=== PATIENT | female | born 1980 | race Caucasian/White ===

== ENCOUNTER 2022-02-28 08:38 | Emergency (ER) | payer MEDICAID ==
[~2022-02-28] VITALS: Ht 157.5 cm; Wt 79.5 kg
--- NOTE | 2022-02-28 09:27 | NUR ---
UNABLE TO GIVE URINE SAMPLE AT THIS TIEM
--- NOTE | 2022-02-28 09:51 | NUR ---
URINE SENT TO LAB
[2022-02-28 09:57] LABS: CLARITY,URINE CLOUDY (Clear); COLOR,URINE YELLOW (Yellow); GLUCOSE, URINE NEGATIVE (Neg); KETONES,URINE 15 mg/dl (Neg); LEUKOCYTE ESTERASE ,URINE LARGE (Neg); NITRITES, URINE POSITIVE (Neg); OCCULT BLOOD,URINE MODERATE (Neg); PROTEIN,URINE 30 mg/dl (Neg); UROBILINOGEN,URINE 0.2 E.U/dL (0.2-1.0)
[2022-02-28 09:58] LABS: UA COLLECTION TYPE CLN CATCH MIDSTREAM
[2022-02-28 10:00] LABS: URINE HCG NEGATIVE (NEG)
[2022-02-28] MEDS ORDERED: normal saline 1000ML IV soln IVB ONE (10:00)
[2022-02-28] MEDS ORDERED: ondansetron/PF 4mg/2ml inj IV ONE (10:00)
[2022-02-28 10:05] LABS: SQUAMOUS EPITHELIAL CELL,UR MANY /LPF (FEW); WBC,URINE TNTC /HPF (0-4)
[2022-02-28 10:06] LABS: BACTERIA,URINE 1+ /HPF (Neg); RBC,URINE 0-2 /HPF (0-2)
--- NOTE | 2022-02-28 10:14 | NUR ---
Isolation cart placed outside of patients room due to r/o for COVID/flu. Patient also educated regarding need to obtain another urine sampel due to sample being rejected for culture. Patient given a urine collection cup and multiple wipes, educated regarding mid stream clean catch. patient verbalized understanding, but unable to void at this time. [place] PAUL aware of need for another urine sample.
--- NOTE | 2022-02-28 10:42 | NUR ---
relieving RN for break, pt is resting quietly on bed, family at bedside, flu and covid swab done, technical laboratory asst at bedside, 1st liter NS infusing w/o
[2022-02-28 10:55] LABS: BASOPHILS % (AUTO) 0.1 % (0-1); EOSINOPHILS % (AUTO) 0 % (0-6); HEMATOCRIT 36.9 % (35.0-45.0); HEMOGLOBIN 12.2 g/dl (12.0-16.0); LYMPHOCYTES # (AUTO) 0.6 X10'3 (1.1-4.8); LYMPHOCYTES % (AUTO) 4.7 % (21-51); MEAN CORPUSCULAR HEMOGLOBIN 28.5 PG (27.0-31.0); MEAN CORPUSCULAR HGB CONC 33.1 g/dL (33.0-36.5); MEAN CORPUSCULAR VOLUME 86.3 FL (78-98); MONOCYTES # (AUTO) 1.4 X10'3 (0-0.9); MONOCYTES % (AUTO) 10.5 % (2-12); NEUTROPHILS # (AUTO) 11.6 X10'3 (1.8-7.7); NEUTROPHILS % (AUTO) 84.7 % (42-75); PLATELET COUNT 184 X10'3 (140-440); RED BLOOD COUNT 4.28 X10'6 (4.20-5.60); RED CELL DISTRIBUTION WIDTH 13.9 % (11.5-14.5); WHITE BLOOD COUNT 13.7 X10'3 (4.5-11.0)
[2022-02-28 11:05] LABS: ALANINE AMINOTRANSFERASE 15 U/L (12-78); ALBUMIN 2.6 G/DL (3.4-5.0); ALBUMIN/GLOBULIN RATIO 0.7 (1.1-1.5); ALKALINE PHOSPHATASE 48 IU/L (46-116); ANION GAP 6 (8-16); ASPARTATE AMINO TRANSFERASE 15 U/L (10-37); BILIRUBIN,TOTAL 0.4 MG/DL (0.1-1.0); BLOOD UREA NITROGEN 9 MG/DL (7-18); BUN/CREATININE RATIO 10.1 (6.6-38.0); CHLORIDE 100 MMOL/L (99-107); CREATININE 0.89 MG/DL (0.40-0.90); GLUCOSE 111 MG/DL (70-104); POTASSIUM 3.7 MMOL/L (3.5-5.1); SODIUM 134 MMOL/L (135-145); TOTAL CARBON DIOXIDE 27.9 MMOL/L (24-32); TOTAL PROTEIN 6.3 G/DL (6.4-8.2); eGFR 70 ML/MIN
[2022-02-28] MEDS ORDERED: CefTRIAXone/D5W-Rocephin 1gm 50 ML IV ONE (11:05)
[2022-02-28] MEDS ORDERED: ONDA4TAB12 PO (11:11)
[2022-02-28] MEDS ORDERED: CIPR-259 PO (11:11)
[2022-02-28 11:41] VITALS: BP 113/66
== END 2022-02-28 12:11 | disposition home or self-care (01) ==
LOC: ER 08:38
DX: N10 Acute pyelonephritis (principal); Z20.822 Contact with and (suspected) exposure to COVID-19; Z91.041 Radiographic dye allergy status; Z88.5 Allergy status to narcotic agent; Z91.040 Latex allergy status; Z87.891 Personal history of nicotine dependence
CPT/HCPCS: 36415; 80053; 81001; 81025; 85025; 87502; 87503; 87811; 96361; 96365; 96375; 99284; J0696; J2405; J7030

== ENCOUNTER 2022-03-07 08:29 | Emergency (ER) | payer MEDICAID ==
[~2022-03-07] VITALS: Ht 157.5 cm; Wt 79.5 kg
[~2022-03-07 08:29] MED LIST: CIPR-259 PO; ONDA4TAB12 PO
[2022-03-07 08:38] VITALS: BP 147/86
--- NOTE | 2022-03-07 11:08 | NUR ---
Lon bautista in ED - 03/07/22 at 1210 by GULSHAN PT [id number] SITTING AT [address].
[2022-03-07] MEDS ORDERED: ACYC-129 PO (12:09)
[2022-03-07] MEDS ORDERED: PRED10TA23 PO (12:09)
[2022-03-07] MEDS ORDERED: ACYC5CRE2 TOP (12:09)
--- NOTE | 2022-03-07 12:11 | NUR ---
PT CAME IN WITH A CO OF VAGINAL DISCOMFORT. JERICHO NUNEZ PERFORMED A PELVIC EXAM WITH ME A WITNESS. MAYRA EXPLAINED THE PROCEDURE TO THE PT PRIOR TO THE EXAM, AND COMMUNICATED THROUGHOUT WHAT HE WAS DOING. DURING THE EXAM NOTHING ABNORMAL WAS FOUND. THE PT DOES NOT APPEAR TO BE IN ANY DISTRESS DURING THE PROCESS. EDUCATION WAS PROVIDED BY JERICHO REGARDING ANTIVIRAL MEDICATION USE FOR PREVIOUS DIAGNOSIS. PT VERBALIZED HER UNDERSTANING.
== END 2022-03-07 12:32 | disposition home or self-care (01) ==
LOC: ER 08:30
DX: B00.9 Herpesviral infection, unspecified (principal); Z88.5 Allergy status to narcotic agent; Z91.041 Radiographic dye allergy status; Z91.040 Latex allergy status; Z87.891 Personal history of nicotine dependence
CPT/HCPCS: 99283

== ENCOUNTER 2023-01-17 14:35 | Emergency (ER) | payer MEDICAID ==
[~2023-01-17] VITALS: Ht 157.5 cm; Wt 95.0 kg
[~2023-01-17 14:35] MED LIST changes: +ACYC5CRE2 TOP; -CIPR-259 PO
[2023-01-17 14:42] VITALS: BP 130/83
[2023-01-17 16:12] LABS: URINE HCG NEGATIVE (NEG)
[2023-01-17 16:16] LABS: CLARITY,URINE CLEAR (Clear); COLOR,URINE STRAW (Yellow); GLUCOSE, URINE NEGATIVE (Neg); KETONES,URINE NEGATIVE (Neg); LEUKOCYTE ESTERASE ,URINE NEGATIVE (Neg); NITRITES, URINE NEGATIVE (Neg); OCCULT BLOOD,URINE NEGATIVE (Neg); PROTEIN,URINE NEGATIVE (Neg); UROBILINOGEN,URINE 0.2 E.U/dL (0.2-1.0)
[2023-01-17 16:26] LABS: UA COLLECTION TYPE CLN CATCH MIDSTREAM
[2023-01-17] MEDS ORDERED: PRED20TA PO (16:47)
[2023-01-17] MEDS ORDERED: ACYC-129 PO (16:47)
== END 2023-01-17 17:00 | disposition home or self-care (01) ==
LOC: ER 14:36
DX: B00.9 Herpesviral infection, unspecified (principal); Z76.0 Encounter for issue of repeat prescription; Z88.8 Allergy status to other drugs, medicaments and biological substances; Z88.5 Allergy status to narcotic agent; Z79.899 Other long term (current) drug therapy
CPT/HCPCS: 81003; 81025; 99283

== ENCOUNTER 2023-02-03 13:29 | Emergency (ER) | payer MEDICAID ==
[~2023-02-03] VITALS: Ht 157.5 cm; Wt 99.6 kg
[~2023-02-03 13:29] MED LIST changes: +ACYC-129 PO
[2023-02-03 13:38] VITALS: BP 127/82; PULSE 65; RESP 18; TEMP 99.2; O2SAT 96
[2023-02-03] MEDS ORDERED: TRAM50TA2 PO (14:43)
[2023-02-03] MEDS ORDERED: IBUP-1986 PO (14:43)
== END 2023-02-03 16:00 | disposition home or self-care (01) ==
LOC: ER 13:30
DX: M25.532 Pain in left wrist (principal); Z91.041 Radiographic dye allergy status; Z88.5 Allergy status to narcotic agent; Z91.040 Latex allergy status; Z91.013 Allergy to seafood; Z79.2 Long term (current) use of antibiotics
CPT/HCPCS: 29125; 73110; 99283

== ENCOUNTER → 2023-06-24 | Emergency (ER) | payer MEDICAID ==
[~2023-06-24] VITALS: Ht 157.5 cm; Wt 104.5 kg
[~2023-06-24] MED LIST changes: +IBUP-1986 PO; +NAPR-56 PO; +ketorolac trometh inj. 60 MG/2 ML VIAL IM ONE
[2023-06-24 11:45] LABS: URINE HCG NEGATIVE (NEG)
[2023-06-24 11:47] LABS: BASOPHILS # (AUTO) 0.2 X10'3 (0-0.2); BASOPHILS % (AUTO) 1.6 % (0-1); EOSINOPHILS # (AUTO) 0.3 X10'3 (0-0.9); EOSINOPHILS % (AUTO) 2.6 % (0-6); HEMATOCRIT 38.3 % (35.0-45.0); HEMOGLOBIN 12.8 g/dl (12.0-16.0); LYMPHOCYTES % (AUTO) 9.2 % (21-51); MEAN CORPUSCULAR HEMOGLOBIN 29.6 PG (27.0-31.0); MEAN CORPUSCULAR HGB CONC 33.3 g/dL (33.0-36.5); MEAN CORPUSCULAR VOLUME 88.7 FL (78-98); MEAN PLATELET VOLUME 6.5 FL (7.4-10.4); MONOCYTES % (AUTO) 8.8 % (2-12); NEUTROPHILS # (AUTO) 8.8 X10'3 (1.8-7.7); NEUTROPHILS % (AUTO) 77.8 % (42-75); PLATELET COUNT 290 X10'3 (140-440); RED BLOOD COUNT 4.32 X10'6 (4.20-5.60); RED CELL DISTRIBUTION WIDTH 13.8 % (11.5-14.5); WHITE BLOOD COUNT 11.3 X10'3 (4.5-11.0)
[2023-06-24 11:47] LABS: BILIRUBIN,URINE NEGATIVE (Neg); CLARITY,URINE CLEAR (Clear); COLOR,URINE YELLOW (Yellow); GLUCOSE, URINE NEGATIVE (Neg); KETONES,URINE NEGATIVE (Neg); LEUKOCYTE ESTERASE ,URINE NEGATIVE (Neg); NITRITES, URINE NEGATIVE (Neg); OCCULT BLOOD,URINE NEGATIVE (Neg); PH,URINE 6.5 (4.8-8.0); PROTEIN,URINE NEGATIVE (Neg); UROBILINOGEN,URINE 0.2 E.U/dL (0.2-1.0)
[2023-06-24 11:51] LABS: UA COLLECTION TYPE CLN CATCH MIDSTREAM
[2023-06-24 12:04] LABS: ALANINE AMINOTRANSFERASE 43 U/L (12-78); ALBUMIN 3.5 G/DL (3.4-5.0); ALKALINE PHOSPHATASE 52 IU/L (46-116); ANION GAP 9 (8-16); ASPARTATE AMINO TRANSFERASE 20 U/L (10-37); BILIRUBIN,TOTAL 0.2 MG/DL (0.1-1.0); BLOOD UREA NITROGEN 10 MG/DL (7-18); BUN/CREATININE RATIO 14.5 (10.0-20.0); CALCIUM 8.7 MG/DL (8.5-10.1); CHLORIDE 103 MMOL/L (99-107); CREATININE 0.69 MG/DL (0.40-0.90); GLUCOSE 92 MG/DL (70-104); LIPASE 22 U/L (16-77); POTASSIUM 3.8 MMOL/L (3.5-5.1); SODIUM 139 MMOL/L (135-145); TOTAL PROTEIN 7.1 G/DL (6.4-8.2); eCRCL 84 ML/MIN; eGFR > 90 ML/MIN
[2023-06-24 14:07] VITALS: BP 132/77; PULSE 64; RESP 17; TEMP 98.3; O2SAT 100
== END | disposition home or self-care (01) ==
LOC: ER 11:04
DX: R10.9 Unspecified abdominal pain (principal); Z88.5 Allergy status to narcotic agent; Z91.040 Latex allergy status; Z91.010 Allergy to peanuts; Z91.013 Allergy to seafood
CPT/HCPCS: 36415; 80053; 81003; 81025; 83690; 85025; 96372; 99283; J1885; J7030

== ENCOUNTER 2024-03-31 10:14 | Inpatient (IN) | payer MEDICAID ==
[~2024-03-31] VITALS: Ht 157.5 cm; Wt 90.9 kg
[~2024-03-31 10:14] MED LIST changes: -NAPR-56 PO; +ONDA-243 PO; -ONDA4TAB12 PO; -ketorolac trometh inj. 60 MG/2 ML VIAL IM ONE
[2024-03-31] MEDS: fentaNYL/PF 50MCG/1 ML 2ML syringe IV ONE ×2 (10:57→12:36)
[2024-03-31] MEDS: normal saline 1000ML IV soln IVB ONE (10:58)
[2024-03-31 11:24] LABS: BASOPHILS % (AUTO) 0.4 % (0-1); EOSINOPHILS # (AUTO) 0.2 X10'3 (0-0.9); EOSINOPHILS % (AUTO) 3.2 % (0-6); HEMATOCRIT 41.3 % (35.0-45.0); HEMOGLOBIN 13.6 g/dl (12.0-16.0); LYMPHOCYTES # (AUTO) 1.2 X10'3 (1.1-4.8); MEAN CORPUSCULAR HEMOGLOBIN 29.5 PG (27.0-31.0); MEAN CORPUSCULAR HGB CONC 32.9 g/dL (33.0-36.5); MEAN CORPUSCULAR VOLUME 89.7 FL (78-98); MONOCYTES # (AUTO) 0.6 X10'3 (0-0.9); MONOCYTES % (AUTO) 8.1 % (2-12); NEUTROPHILS # (AUTO) 5.3 X10'3 (1.8-7.7); NEUTROPHILS % (AUTO) 72.3 % (42-75); PLATELET COUNT 264 X10'3 (140-440); RED CELL DISTRIBUTION WIDTH 13.5 % (11.5-14.5); WHITE BLOOD COUNT 7.3 X10'3 (4.5-11.0)
[2024-03-31 11:44] LABS: ALBUMIN 3.6 G/DL (3.4-5.0); ANION GAP 9 (8-16); BLOOD UREA NITROGEN 12 MG/DL (7-18); BUN/CREATININE RATIO 14.8 (10.0-20.0); CALCIUM 8.9 MG/DL (8.5-10.1); CHLORIDE 103 MMOL/L (99-107); CREATININE 0.81 MG/DL (0.40-0.90); GLUCOSE 63 MG/DL (70-104); MAGNESIUM 1.8 MG/DL (1.5-2.4); POTASSIUM 4.3 MMOL/L (3.5-5.1); PRO BRAIN NATRIURETIC PEPTIDE 233 PG/ML (0-125); SODIUM 140 MMOL/L (135-145); TOTAL CARBON DIOXIDE 28.3 MMOL/L (24-32); eCRCL 71 ML/MIN; eGFR 77 ML/MIN
[2024-03-31] MEDS ORDERED: BUPR-344 PO (12:23)
[2024-03-31] MEDS ORDERED: FLUO-167 PO (12:25)
[2024-03-31] MEDS ORDERED: SEMA2PEN SUBCUT (12:26)
[2024-03-31] MEDS ORDERED: ARIP30TA22 PO (12:27)
[2024-03-31] MEDS ORDERED: potassium Cl 40MEQ/1/2NS 520ml 520 ML IV PRN (12:30)
[2024-03-31] MEDS ORDERED: magnesium sulf-water 4G/100mL 100 ML IV PRN (12:30)
[2024-03-31] MEDS ORDERED: magnesium sulf-water 2g/50mL 50 ML IV PRN (12:30)
[2024-03-31] MEDS ORDERED: magnesium hydroxide 30ml (MOM) UD suspension PO PRN (12:30)
[2024-03-31] MEDS ORDERED: HYDROmorphone/PF 0.2 MG/ML SYRINGE IV PRN (12:30)
[2024-03-31] MEDS ORDERED: potassium Cl 20 mEq SR tablet PO PRN ×2 (12:30)
[2024-03-31] MEDS ORDERED: acetaminophen 325mg tablet PO PRN ×2 (12:30)
[2024-03-31] MEDS ORDERED: HYDROcodone/acetaminophen 5mg/325mg tablet PO PRN (12:30)
[2024-03-31] MEDS ORDERED: mag hydrox/Alum hydrox/simeth 30ml oral suspension PO PRN (12:30)
[2024-03-31] MEDS: HYDROmorphone 1 mg/ml syringe IV ONE (12:33)
[2024-03-31] MEDS: normal saline 1000ml 1,000 ML IV SCH (12:38)
[2024-03-31] MEDS: HYDROcodone/acetaminophen 10/325mg tab PO PRN (14:11)
[2024-03-31] MEDS: ondansetron/PF 4mg/2ml inj IV PRN (15:57)
[2024-03-31] MEDS: HYDROmorphone inj. 0.5 MG/0.5 ML DISP.SYRIN IV PRN (16:00)
[2024-03-31] MEDS: K and/or MAG REPLACEMENT MC SCH (20:00)
[2024-03-31] MEDS: docusate sod 100mg capsule PO SCH (20:00)
[2024-03-31] MEDS: enoxaparin 40mg/0.4ml syringe SQ SCH (20:52)
[2024-04-01] VITALS (18 sets, daily range): BP systolic 104–136; BP diastolic 57–76; PULSE 66–86; RESP 12–17; TEMP 97.7–98.8; O2SAT 87–100
[2024-04-01 02:11] LABS: BASOPHILS % (AUTO) 0.2 % (0-1); EOSINOPHILS # (AUTO) 0.1 X10'3 (0-0.9); EOSINOPHILS % (AUTO) 1.1 % (0-6); HEMATOCRIT 35.1 % (35.0-45.0); HEMOGLOBIN 11.8 g/dl (12.0-16.0); LYMPHOCYTES # (AUTO) 0.9 X10'3 (1.1-4.8); LYMPHOCYTES % (AUTO) 12.1 % (21-51); MEAN CORPUSCULAR HEMOGLOBIN 30.2 PG (27.0-31.0); MEAN CORPUSCULAR HGB CONC 33.7 g/dL (33.0-36.5); MEAN CORPUSCULAR VOLUME 89.5 FL (78-98); MEAN PLATELET VOLUME 6.9 FL (7.4-10.4); MONOCYTES # (AUTO) 0.7 X10'3 (0-0.9); MONOCYTES % (AUTO) 9.5 % (2-12); NEUTROPHILS # (AUTO) 5.7 X10'3 (1.8-7.7); NEUTROPHILS % (AUTO) 77.1 % (42-75); PLATELET COUNT 236 X10'3 (140-440); RED BLOOD COUNT 3.92 X10'6 (4.20-5.60); RED CELL DISTRIBUTION WIDTH 13.1 % (11.5-14.5); WHITE BLOOD COUNT 7.4 X10'3 (4.5-11.0)
[2024-04-01 02:22] LABS: ALBUMIN 2.8 G/DL (3.4-5.0); ANION GAP 8 (8-16); ASPARTATE AMINO TRANSFERASE 152 U/L (10-37); BILIRUBIN,TOTAL 0.5 MG/DL (0.1-1.0); BLOOD UREA NITROGEN 9 MG/DL (7-18); CALCIUM 7.8 MG/DL (8.5-10.1); CHLORIDE 106 MMOL/L (99-107); CREATININE 0.69 MG/DL (0.40-0.90); GLUCOSE 100 MG/DL (70-104); MAGNESIUM 1.5 MG/DL (1.5-2.4); POTASSIUM 3.9 MMOL/L (3.5-5.1); SODIUM 141 MMOL/L (135-145); TOTAL CARBON DIOXIDE 27.2 MMOL/L (24-32); TOTAL PROTEIN 5.6 G/DL (6.4-8.2); eCRCL 83 ML/MIN; eGFR > 90 ML/MIN
[2024-04-01 02:23] LABS: ALANINE AMINOTRANSFERASE 210 U/L (12-78); ALKALINE PHOSPHATASE 72 IU/L (46-116)
[2024-04-01] MEDS ORDERED: hydrALAZINE 20mg/ml inj. IV PRN (08:25)
[2024-04-01] MEDS: ringers solution, lacted 1,000 ML IV SCH (08:25)
[2024-04-01] MEDS ORDERED: fentaNYL/PF 50MCG/1 ML 2ML syringe IV PRN ×2 (08:25)
[2024-04-01] MEDS ORDERED: labetalol 20mg/4ml (5mg/ml) syringe IV PRN (08:25)
[2024-04-01] MEDS ORDERED: ondansetron/PF 4mg/2ml inj IV PRN (08:25)
[2024-04-01] MEDS ORDERED: HYDROmorphone/PF 0.2 MG/ML SYRINGE IV PRN ×2 (08:25)
[2024-04-01] MEDS ORDERED: HYDROmorphone inj. 0.5 MG/0.5 ML DISP.SYRIN IV PRN (08:45)
[2024-04-01] MEDS: FLUoxetine 20mg capsule PO SCH (09:28)
[2024-04-01] MEDS: aripiprazole 15 MG tablet PO SCH (09:30)
[2024-04-01] MEDS: BUPROPION HCL 150MG XL 24 HR 150 MG TAB PO SCH (09:32)
[2024-04-01] MEDS: famotidine 20mg tablet PO ONE (11:12)
[2024-04-01] MEDS: cefazolin 2gm/D5W 100mL 100 ML IV ONE (11:20)
[2024-04-01] MEDS ORDERED: LIDOcaine 2% (20mg/ml) 5ml vial ONE (11:50)
[2024-04-01] MEDS ORDERED: propofol inj 20 ML IV ONE (11:50)
[2024-04-01] MEDS ORDERED: ROPIVAcaine 0.5% (5mg/ml) 30ml vial ONE ×2 (11:50)
[2024-04-01] MEDS ORDERED: ondansetron/PF 4mg/2ml inj ONE (11:50)
[2024-04-01] MEDS ORDERED: sevoflurane 250ml liquid IH ONE (12:01)
[2024-04-01] MEDS ORDERED: acetaminophen 1,000mg/100ml IV 100 ML IV ONE (12:36)
[2024-04-01] MEDS ORDERED: dexamethasone sod phosphate 4mg/ml inj. ONE (12:42)
[2024-04-01] MEDS: BUPIVAcaine 2.5mg/ml inj 50ml vial (contains preservative) ONE (15:18)
[2024-04-02 02:00] VITALS: BP 97/54; PULSE 70; RESP 16; TEMP 97.8; O2SAT 94
[2024-04-02 06:00] VITALS: BP 120/72; PULSE 88; RESP 16; TEMP 97.7; O2SAT 99
[2024-04-02 06:11] LABS: BASOPHILS % (AUTO) 0.1 % (0-1); EOSINOPHILS % (AUTO) 0.1 % (0-6); HEMATOCRIT 34.8 % (35.0-45.0); HEMOGLOBIN 11.6 g/dl (12.0-16.0); LYMPHOCYTES # (AUTO) 1.1 X10'3 (1.1-4.8); LYMPHOCYTES % (AUTO) 11.1 % (21-51); MEAN CORPUSCULAR HGB CONC 33.3 g/dL (33.0-36.5); MEAN PLATELET VOLUME 7.3 FL (7.4-10.4); MONOCYTES # (AUTO) 1.2 X10'3 (0-0.9); MONOCYTES % (AUTO) 12.5 % (2-12); NEUTROPHILS # (AUTO) 7.5 X10'3 (1.8-7.7); NEUTROPHILS % (AUTO) 76.2 % (42-75); PLATELET COUNT 214 X10'3 (140-440); RED BLOOD COUNT 3.87 X10'6 (4.20-5.60); RED CELL DISTRIBUTION WIDTH 13.3 % (11.5-14.5); WHITE BLOOD COUNT 9.9 X10'3 (4.5-11.0)
[2024-04-02 06:37] LABS: ALANINE AMINOTRANSFERASE 132 U/L (12-78); ALBUMIN 2.7 G/DL (3.4-5.0); ALBUMIN/GLOBULIN RATIO 0.9 (1.1-1.5); ALKALINE PHOSPHATASE 62 IU/L (46-116); ANION GAP 6 (8-16); ASPARTATE AMINO TRANSFERASE 59 U/L (10-37); BILIRUBIN,TOTAL 0.3 MG/DL (0.1-1.0); BLOOD UREA NITROGEN 6 MG/DL (7-18); CALCIUM 8.4 MG/DL (8.5-10.1); CHLORIDE 107 MMOL/L (99-107); GLUCOSE 90 MG/DL (70-104); MAGNESIUM 1.8 MG/DL (1.5-2.4); POTASSIUM 3.9 MMOL/L (3.5-5.1); SODIUM 141 MMOL/L (135-145); TOTAL CARBON DIOXIDE 27.6 MMOL/L (24-32); TOTAL PROTEIN 5.7 G/DL (6.4-8.2); eCRCL 96 ML/MIN; eGFR > 90 ML/MIN
[2024-04-02 08:00] VITALS: RESP 16; O2SAT 99
[2024-04-02] MEDS ORDERED: HYDR-3972 PO (11:27)
[2024-04-02 12:00] VITALS: BP 93/52; PULSE 83; RESP 18; TEMP 98.2; O2SAT 98
== END 2024-04-02 13:06 | disposition home or self-care (01) | DRG 315 ==
LOC: ER 10:14 → ED HOLD 12:36 → ORTHO 4S 04-01 07:35
PROVIDERS: ADMIT Family Medicine; ATTEND Family Medicine
PROC: 2W3CX1Z Immobilization of Right Lower Arm using Splint (ICD-10-PCS; principal; 2024-03-31)
PROC: 0PSF04Z Reposition Right Humeral Shaft with Internal Fixation Device, Open Approach (ICD-10-PCS; 2024-04-01)
PROC: 3E0T3BZ Introduction of Anesthetic Agent into Peripheral Nerves and Plexi, Percutaneous Approach (ICD-10-PCS; 2024-04-01)
PROC: 3E0T33Z Introduction of Anti-inflammatory into Peripheral Nerves and Plexi, Percutaneous Approach (ICD-10-PCS; 2024-04-01)
DX: S42.461A Displaced fracture of medial condyle of right humerus, initial encounter for closed fracture (principal); E16.2 Hypoglycemia, unspecified; W18.39XA Other fall on same level, initial encounter; E66.9 Obesity, unspecified; Z66 Do not resuscitate; F32.A Depression, unspecified; Z88.5 Allergy status to narcotic agent; Z79.899 Other long term (current) drug therapy; Z91.013 Allergy to seafood; Z91.040 Latex allergy status; Z91.018 Allergy to other foods; Y93.89 Activity, other specified; Y92.89 Other specified places as the place of occurrence of the external cause; Y99.8 Other external cause status; Z83.3 Family history of diabetes mellitus; Z98.84 Bariatric surgery status; Z68.36 Body mass index [BMI] 36.0-36.9, adult
CPT/HCPCS: 36415; 71045; 73070; 73080; 76000; 80048; 80053; 82948; 83735; 83880; 84484; 85025; 87081; 93005; 93306; 96374; 96376; 97116; 97161; 99285; A4215; A4565; A4618; A6222; A6446; A6449; A7000; C1713; G0378; J0131; J0690; J1100; J1170; J1650; J2405; J2704; J2795; J3010; J3490; J7030; J7120

== ENCOUNTER 2024-05-13 09:32 | Emergency (ER) | payer MEDICAID ==
[~2024-05-13] VITALS: Ht 157.5 cm; Wt 94.0 kg
[~2024-05-13 09:32] MED LIST changes: -ACYC-129 PO; -ACYC5CRE2 TOP; +ARIP30TA22 PO; +BUPR-344 PO; +FLUO-167 PO; +HYDR-3972 PO; -IBUP-1986 PO; -ONDA-243 PO
[2024-05-13 11:30] VITALS: TEMP 98.2
[2024-05-13 11:36] LABS: BASOPHILS % (AUTO) 0.4 % (0-1); EOSINOPHILS # (AUTO) 0.2 X10'3 (0-0.9); EOSINOPHILS % (AUTO) 2.4 % (0-6); HEMATOCRIT 40.1 % (35.0-45.0); HEMOGLOBIN 13.3 g/dl (12.0-16.0); LYMPHOCYTES # (AUTO) 1.4 X10'3 (1.1-4.8); LYMPHOCYTES % (AUTO) 17.7 % (21-51); MEAN CORPUSCULAR HEMOGLOBIN 29.3 PG (27.0-31.0); MEAN CORPUSCULAR HGB CONC 33.2 g/dL (33.0-36.5); MEAN CORPUSCULAR VOLUME 88.3 FL (78-98); MEAN PLATELET VOLUME 7.1 FL (7.4-10.4); MONOCYTES # (AUTO) 0.5 X10'3 (0-0.9); NEUTROPHILS # (AUTO) 5.6 X10'3 (1.8-7.7); NEUTROPHILS % (AUTO) 72.5 % (42-75); PLATELET COUNT 282 X10'3 (140-440); RED BLOOD COUNT 4.54 X10'6 (4.20-5.60); RED CELL DISTRIBUTION WIDTH 13.7 % (11.5-14.5); WHITE BLOOD COUNT 7.8 X10'3 (4.5-11.0)
[2024-05-13 11:38] LABS: ALANINE AMINOTRANSFERASE 30 U/L (12-78); ALBUMIN 3.5 G/DL (3.4-5.0); ALBUMIN/GLOBULIN RATIO 1.1 (1.1-1.5); ALKALINE PHOSPHATASE 53 IU/L (46-116); ANION GAP 7 (8-16); ASPARTATE AMINO TRANSFERASE 18 U/L (10-37); BILIRUBIN,TOTAL 0.3 MG/DL (0.1-1.0); BLOOD UREA NITROGEN 15 MG/DL (7-18); BUN/CREATININE RATIO 19.7 (10.0-20.0); CALCIUM 8.7 MG/DL (8.5-10.1); CHLORIDE 103 MMOL/L (99-107); CREATININE 0.76 MG/DL (0.40-0.90); GLUCOSE 81 MG/DL (70-104); POTASSIUM 4.1 MMOL/L (3.5-5.1); SODIUM 139 MMOL/L (135-145); TOTAL CARBON DIOXIDE 28.8 MMOL/L (24-32); TOTAL PROTEIN 6.6 G/DL (6.4-8.2); eCRCL 75 ML/MIN; eGFR 83 ML/MIN
[2024-05-13 13:41] VITALS: BP 102/63; PULSE 66; RESP 16; O2SAT 99
== END 2024-05-13 13:43 | disposition home or self-care (01) ==
LOC: ER 09:33
DX: N92.1 Excessive and frequent menstruation with irregular cycle (principal); N93.8 Other specified abnormal uterine and vaginal bleeding; K21.9 Gastro-esophageal reflux disease without esophagitis; F32.A Depression, unspecified; Z98.51 Tubal ligation status; Z88.8 Allergy status to other drugs, medicaments and biological substances; Z91.040 Latex allergy status; Z79.899 Other long term (current) drug therapy
CPT/HCPCS: 36415; 76830; 76856; 80053; 85025; 93976; 99284

== ENCOUNTER 2024-09-13 18:13 | Emergency (ER) | payer MEDICAID ==
[~2024-09-13] VITALS: Ht 157.5 cm; Wt 104.5 kg
[~2024-09-13 18:13] MED LIST changes: -ARIP30TA22 PO; +ARIP30TA60 PO
[2024-09-13 18:26] VITALS: TEMP 97.8
[2024-09-13 19:10] LABS: BASOPHILS # (AUTO) 0.1 X10'3 (0-0.2); BASOPHILS % (AUTO) 0.4 % (0-1); EOSINOPHILS # (AUTO) 0.1 X10'3 (0-0.9); EOSINOPHILS % (AUTO) 0.5 % (0-6); HEMATOCRIT 41.2 % (35.0-45.0); HEMOGLOBIN 13.3 g/dl (12.0-16.0); LYMPHOCYTES # (AUTO) 0.9 X10'3 (1.1-4.8); LYMPHOCYTES % (AUTO) 6.1 % (21-51); MEAN CORPUSCULAR HEMOGLOBIN 27.6 PG (27.0-31.0); MEAN CORPUSCULAR HGB CONC 32.3 g/dL (33.0-36.5); MEAN CORPUSCULAR VOLUME 85.5 FL (78-98); MEAN PLATELET VOLUME 6.8 FL (7.4-10.4); MONOCYTES # (AUTO) 0.6 X10'3 (0-0.9); MONOCYTES % (AUTO) 4.4 % (2-12); NEUTROPHILS # (AUTO) 12.5 X10'3 (1.8-7.7); NEUTROPHILS % (AUTO) 88.6 % (42-75); PLATELET COUNT 328 X10'3 (140-440); RED BLOOD COUNT 4.82 X10'6 (4.20-5.60); RED CELL DISTRIBUTION WIDTH 14.6 % (11.5-14.5); WHITE BLOOD COUNT 14.1 X10'3 (4.5-11.0)
[2024-09-13 19:19] LABS: HCG SERUM QL NEGATIVE
[2024-09-13 19:20] LABS: APTT 23 SECONDS (22-32); INR 0.9 INR; PROTHROMBIN TIME 9.9 SECONDS (9.0-12.0)
[2024-09-13 19:23] LABS: ALANINE AMINOTRANSFERASE 27 U/L (12-78); ALBUMIN 3.9 G/DL (3.4-5.0); ALBUMIN/GLOBULIN RATIO 1.3 (1.1-1.5); ALKALINE PHOSPHATASE 56 IU/L (46-116); ANION GAP 5 (8-16); ASPARTATE AMINO TRANSFERASE 21 U/L (10-37); BILIRUBIN,TOTAL 0.3 MG/DL (0.1-1.0); BLOOD UREA NITROGEN 14 MG/DL (7-18); BUN/CREATININE RATIO 17.7 (10.0-20.0); CHLORIDE 106 MMOL/L (99-107); CREATININE 0.79 MG/DL (0.40-0.90); GLUCOSE 98 MG/DL (70-104); POTASSIUM 4.5 MMOL/L (3.5-5.1); SODIUM 141 MMOL/L (135-145); eCRCL 72 ML/MIN; eGFR 79 ML/MIN
[2024-09-13 19:35] LABS: MAGNESIUM 2.1 MG/DL (1.5-2.4); THYROID STIMULATING HORMONE 1.17 ulU/ml (0.34-4.50)
[2024-09-13] MEDS: proCHLORperazine 10 MG/2 ml inj IV ONE (21:02)
[2024-09-13] MEDS: diphenhydrAMINE 50 mg/ml inj IV ONE (21:03)
[2024-09-13] MEDS: ketorolac trometh 30MG/ML vial 30 MG/ML VIAL IV ONE (21:04)
[2024-09-13] MEDS: dexamethasone sod phosphate 10mg/ml inj IV STA (21:04)
[2024-09-13] MEDS: normal saline 1000ML IV soln IVB ONE (21:10)
[2024-09-13] MEDS: SUMAtriptan succ. 6 MG/0.5ml vial SQ ONE (22:34)
[2024-09-13] MEDS: acetaminophen 1,000mg/100ml IV 100 ML IV ONE (22:35)
[2024-09-14 00:02] VITALS: BP 127/70; PULSE 68; RESP 16; O2SAT 100
== END 2024-09-14 00:05 | disposition home or self-care (01) ==
LOC: ER 18:14
DX: R40.4 Transient alteration of awareness (principal); G43.909 Migraine, unspecified, not intractable, without status migrainosus; R79.1 Abnormal coagulation profile; Z88.5 Allergy status to narcotic agent; Z91.041 Radiographic dye allergy status; Z88.8 Allergy status to other drugs, medicaments and biological substances; Z79.899 Other long term (current) drug therapy
CPT/HCPCS: 36415; 70450; 80053; 82948; 83735; 84439; 84443; 84484; 84703; 85025; 85610; 85730; 93005; 96361; 96365; 96372; 96375; 99285; J0131; J0780; J1100; J1200; J1885; J3030; J7030